=== PATIENT | female | born 1965 | race Hispanic/Latino ===

== ENCOUNTER 2017-07-25 11:28 | Inpatient (IN) | payer OTHER ==
[~2017-07-25] VITALS: Ht 165.1 cm; Wt 86.2 kg
[2017-07-25 12:01] LABS: BASOPHILS % 0.3 % (0.0-1.0); HEMATOCRIT 39.2 % (34.2-44.1); HEMOGLOBIN 13.2 g/dL (12.0-16.0); LYMPHOCYTES # (AUTO) 1.3 (1.0-3.2); LYMPHOCYTES % 18.7 % (18.0-39.1); MEAN CORPUSCULAR HEMOGLOBIN 28.6 pg (28-32); MEAN CORPUSCULAR HGB CONC 33.7 g/dL (31-35); MONOCYTES # (AUTO) 0.2 (0.2-0.8); MONOCYTES % 2.7 % (4.4-11.3); NEUTROPHILS # (AUTO) 5.2 (2.1-6.9); NEUTROPHILS % 77.6 % (38.7-80.0); PLATELET COUNT 125 x10e3/uL (140-360); RED BLOOD COUNT 4.61 x10e6/uL (3.6-5.1); RED CELL DISTRIBUTION WIDTH 14.2 % (11.7-14.4)
[2017-07-25 12:11] LABS: BILIRUBIN,URINE 1+ (NEGATIVE); CLARITY,URINE SL CLOUDY (CLEAR); COLOR,URINE YELLOW (YELLOW); KETONES,URINE NEGATIVE (NEGATIVE); LEUKOCYTE ESTERASE ,URINE NEGATIVE (NEGATIVE); NITRITE,URINE NEGATIVE (NEGATIVE); PROTEIN,URINE DIPSTICK 2+ (NEGATIVE); URINE UROBILINOGEN 0.2 mg/dL (0.2 - 1)
[2017-07-25 12:16] LABS: ALANINE AMINOTRANSFERASE 748 IU/L (0-55); ALBUMIN 3.4 g/dL (3.5-5.0); ALBUMIN/GLOBULIN RATIO 0.9 (0.8-2.0); ALKALINE PHOSPHATASE 267 IU/L (40-150); ANION GAP 16.9 mmol/L (8-16); BLOOD UREA NITROGEN 8 mg/dL (7-26); BUN/CREATININE RATIO 10 (6-25); CALCIUM 9.2 mg/dL (8.4-10.2); CARBON DIOXIDE 23 mmol/L (22-29); CHLORIDE 100 mmol/L (98-107); CREATININE, SERUM 0.79 mg/dL (0.57-1.11); EST GLOMERULAR FILTRATION RATE > 60 ML/MIN (60-); GLUCOSE 157 mg/dL (74-118); POTASSIUM 3.9 mmol/L (3.5-5.1); SODIUM 136 mmol/L (136-145)
[2017-07-25 12:17] LABS: RBC,URINE 0-5 /HPF (0-5); WBC,URINE (MAN) 0-5 /HPF (0-5)
[2017-07-25 12:18] LABS: EPITHELIAL CELLS,URINE FEW /LPF
[2017-07-25 12:47] LABS: BAND NEUTROPHILS % (MANUAL) 9 %; LYMPHOCYTES % (MANUAL) 20 % (19-48); MONOCYTES % (MANUAL) 6 % (3.4-9.0); NEUTROPHILS % (MANUAL) 63 % (40-74)
[2017-07-25] MEDS ORDERED: ACETAMINOPHEN 1000 MG/100 ML IV STA (12:47)
[2017-07-25 12:48] LABS: ANISOCYTOSIS SLIGHT; RBC MORPHOLOGY COMMENT NORMAL
[2017-07-25 12:49] LABS: PLATELET ESTIMATE SLIGHTLY DECREASED; PLATELET MORPHOLOGY COMMENT NORMAL
--- NOTE | 2017-07-25 13:42 | Diagnostic Imaging Report ---
PROCEDURE: Frontal and lateral views of the chest. COMPARISON: 10/27/16 INDICATIONS: FEVER, CHILLS, BODY ACHES FINDINGS: Lines/tubes: None. Lungs and pleura: The lungs are well inflated. Obscuration of the left costophrenic angle. Heart and mediastinum: The heart and the mediastinum are normal. Bones: No acute bony abnormality. IMPRESSION: Obscuration of the left costophrenic angle, representing a small effusion and/or pneumonia. Dictated by: Naga Diaz M.D. on 07/25/2017 at 13:44 Electronically approved by: Naga Diaz M.D. on 07/25/2017 at 13:44
[2017-07-25] MEDS ORDERED: SODIUM CHLORIDE 0.9% 1000ML 1,000 ML IV SCH (14:45)
--- NOTE | 2017-07-25 15:35 | Diagnostic Imaging Report ---
EXAM: CT Abdomen and Pelvis WITH contrast INDICATION: \S\FUO ELEVATED LFTS \[id number] \S\1456 \S\N COMPARISON: None. TECHNIQUE: Abdomen and pelvis were scanned utilizing a multidetector helical scanner from the lung base to the pubic symphysis after administration of IV contrast. Coronal and sagittal reformations were obtained. Routine protocol was performed. Scan was performed when during portal venous phase. IV CONTRAST: 100 mL of Isovue-370 ORAL CONTRAST: Water COMPLICATIONS: None RADIATION DOSE: Total DLP: 789.92 mGy*cm Estimated effective dose: (DLP x 0.015 x size factor) mSv CTDIvol has been reviewed. It is below the limits set by the Radiation Protocol Committee (RPC). FINDINGS: LINES and TUBES: None. LOWER THORAX: Bibasilar dependent atelectasis as well as right basilar linear atelectasis/scarring. HEPATOBILIARY: No focal hepatic lesions. No biliary ductal dilation. GALLBLADDER: No radio-opaque stones or sludge. No wall thickening. SPLEEN: No splenomegaly. PANCREAS: No focal masses or ductal dilatation. ADRENALS: No adrenal nodules KIDNEYS/URETERS: Kidneys enhance symmetrically. No hydronephrosis. No renal mass. Left superior pole subcentimeter hypodensity is too small to characterize. No stones. GI TRACT: No abnormal distention, wall thickening, or evidence of bowel obstruction. Appendix is normal. PELVIC ORGANS/BLADDER: Unremarkable. LYMPH NODES: No lymphadenopathy. VESSELS: Unremarkable. PERITONEUM / RETROPERITONEUM: No free air or fluid. BONES: Straightening of the lumbar spine lordosis. Otherwise, unremarkable. SOFT TISSUES: Unremarkable. IMPRESSION: 1. No acute inflammatory process in the abdomen/pelvis. Signed by: Dr. Naga Diaz MD on 07/25/2017 3:31 PM
[2017-07-25 17:36] LABS: HIV 1&2 AB SCREEN NON-REACTIVE (NONREACTIVE)
[2017-07-25] MEDS ORDERED: ONDANSETRON HCL INJ 2 MG/ML VIAL IV PRN (19:30)
[2017-07-25] MEDS ORDERED: IBUPROFEN 600 MG TAB PO PRN (19:30)
[2017-07-25] MEDS ORDERED: ONDANSETRON HCL 4 MG ORAL DISINTEGRATING TAB SL PRN (19:45)
[2017-07-25] MEDS: IBUPROFEN 400 MG TAB PO PRN (20:44)
[2017-07-26] VITALS (56 sets, daily range): BP systolic 71–165; BP diastolic 36–88
[2017-07-26] MEDS: SODIUM CHLORIDE 0.9% 1000ML 1,000 ML IV SCH ×4 (00:28→19:26)
[2017-07-26] MEDS ORDERED: IBUPROFEN 400 MG TAB ONE (04:13)
[2017-07-26] MEDS: IBUPROFEN 400 MG TAB PO PRN ×3 (04:17→21:44)
--- NOTE | 2017-07-26 05:37 | History and Physical ---
CLINICAL HISTORY: This is a 52-year-old woman seen in the emergency room at [facility] because of hypotension, fever of 9 days duration up to 103 degrees. This patient reportedly started having fever 9 days ago up to 103 degrees Fahrenheit. Father apparently had active tuberculosis, and the patient was given isoniazid approximately 7 months ago. She stopped taking this medication when she started having fever after having seen Dr. Morrison in the office a week ago and also today. Three days ago, the patient apparently has seen Dr. Tabby Durán, (sp?) who is reportedly an infectious disease managed services consultant. The patient was prescribed cefuroxime and has been taking this antibiotic for the past week. PAST MEDICAL HISTORY: Remarkable for hand surgery and tubal ligation. PERSONAL AND SOCIAL HISTORY: She denies smoking, but drinks approximately 5 drinks per week. She denies any drug abuse. MEDICATIONS: Included isoniazid and cefuroxime as well as vitamin. She is unemployed. FAMILY HISTORY: Father had hypertension, tuberculosis. Mother had no outstanding medical problem, but was also treated with isoniazid. Brother and sister are healthy. REVIEW OF SYSTEMS: Noncontributory. PHYSICAL EXAMINATION: VITAL SIGNS: Remarkable for blood pressure initially in the range of 80s. CARDIAC: Jugular veins were not distended. S1 and S2 were regular. There were no appreciable murmurs. LUNGS: Clear. ABDOMEN: Soft. Bowel sounds were present. EXTREMITIES: Showed no cyanosis, clubbing, edema. IMPRESSION: 1. Persistent fever of 9 days duration up to 103 degrees Fahrenheit, and associated with arthralgia, elevated liver functions. Consider hepatitis. Consider connective tissue disease as well as fever of unknown origin. 2. Hypotension, possibly due to sepsis with elevated lactate level. 3. History of tuberculosis exposure, treated with isoniazid for 7 months. RECOMMENDATION: Workup for fever of origin. Infectious disease consultation. Job#: [id number] cc:AGUSTIN MORRISON MD
[2017-07-26 07:34] LABS: BASOPHILS % 0.2 % (0.0-1.0); HEMATOCRIT 34.1 % (34.2-44.1); HEMOGLOBIN 11.6 g/dL (12.0-16.0); LYMPHOCYTES # (AUTO) 1.8 (1.0-3.2); LYMPHOCYTES % 20.8 % (18.0-39.1); MEAN CORPUSCULAR HEMOGLOBIN 28.9 pg (28-32); MONOCYTES # (AUTO) 0.4 (0.2-0.8); MONOCYTES % 4.1 % (4.4-11.3); NEUTROPHILS # (AUTO) 6.5 (2.1-6.9); NEUTROPHILS % 73.8 % (38.7-80.0); PLATELET COUNT 122 x10e3/uL (140-360); RED BLOOD COUNT 4.01 x10e6/uL (3.6-5.1); RED CELL DISTRIBUTION WIDTH 14.4 % (11.7-14.4)
[2017-07-26 08:07] LABS: ANION GAP 13.6 mmol/L (8-16); BLOOD UREA NITROGEN 6 mg/dL (7-26); BUN/CREATININE RATIO 9 (6-25); CALCIUM 8.5 mg/dL (8.4-10.2); CARBON DIOXIDE 21 mmol/L (22-29); CHLORIDE 106 mmol/L (98-107); CREATININE, SERUM 0.65 mg/dL (0.57-1.11); EST GLOMERULAR FILTRATION RATE > 60 ML/MIN (60-); GLUCOSE 129 mg/dL (74-118); POTASSIUM 3.6 mmol/L (3.5-5.1); SODIUM 137 mmol/L (136-145)
[2017-07-26] MEDS: PIPER-TAZ 3.375 GM 100 ML IV SCH ×3 (08:30→21:00)
--- NOTE | 2017-07-26 10:30 | Cardiology Report ---
DATE OF STUDY: ECHOCARDIOGRAM M-MODE: Normal chamber and wall dimensions. Normal contractility. Normal mitral and aortic valves. Small posterior pericardial effusion. SECTOR SCAN: Normal chamber and wall dimensions. Normal contractility. Normal mitral, aortic, and tricuspid valves. Small posterior pericardial effusion measuring 0.3 cm. CARDIAC DOPPLER STUDY WITH COLOR: Trace mitral regurgitation. 1+ tricuspid and pulmonic regurgitation. Pulmonary artery systolic pressure estimated at 33 mmHg. CONCLUSIONS: 1. Left ventricular ejection fraction is approximately 50%. 2. Small posterior pericardial effusion less than 0.3 cm. 3. Trace mitral regurgitation. 4. Mild tricuspid and pulmonic regurgitation. Job#: [id number] cc:AGUSTIN ARMANDO MD
[2017-07-26 10:50] LABS: BAND NEUTROPHILS % (MANUAL) 9 %; LYMPHOCYTES % (MANUAL) 20 % (19-48); METAMYELOCYTES % (MANUAL) 2 % (0-0); MONOCYTES % (MANUAL) 3 % (3.4-9.0); NEUTROPHILS % (MANUAL) 60 % (40-74)
[2017-07-26 10:51] LABS: ANISOCYTOSIS SLIGHT; HYPOCHROMASIA SLIGHT; PLATELET ESTIMATE SLIGHTLY DECREASED; PLATELET MORPHOLOGY COMMENT FEW LARGE; RBC MORPHOLOGY COMMENT NORMAL
[2017-07-26] MEDS ORDERED: SODIUM CHLORIDE 0.9% 500ML 500 ML IV ONE (11:00)
[2017-07-26] MEDS ORDERED: SODIUM CHLORIDE 0.9% 1000ML 1,000 ML ONE ×2 (12:12→15:13)
[2017-07-26] MEDS ORDERED: ONDANSETRON HCL 4 MG ORAL DISINTEGRATING TAB PO PRN (12:45)
[2017-07-26] MEDS ORDERED: ISONIAZID300 MG PO (13:35)
[2017-07-26] MEDS ORDERED: CEFUROXIME500 MG PO (13:35)
[2017-07-26] MEDS ORDERED: ACETAMINOPHEN325 M1 PO (13:35)
--- NOTE | 2017-07-26 18:41 | Diagnostic Imaging Report ---
EXAMINATION: Head CT HISTORY: Severe headache, fever of unknown origin COMPARISON: None. TECHNIQUE: Multidetector axial images were obtained without contrast from the foramen magnum to the vertex . The images were reconstructed using brain and bone algorithms. Thin section brain images were reformatted into coronal and sagittal planes. Motion/streaking artifact limits the evaluation of the skull base and posterior cranial fossa. FINDINGS: Parenchyma: 1. A few scattered bilateral frontal juxtacortical white matter hypodensities, most likely nonspecific chronic microvascular ischemic changes. 2. No mass or hemorrhage. No CT evidence of acute territorial vascular insult. Extra-axial spaces:No abnormal density. No extra-axial fluid collections Brain volume: Normal for age. Ventricles: No hydrocephalus or displacement. Arteries: No density suggestive of thrombus. Dural sinuses: No abnormal density. Extra-axial spaces: No abnormal density. Foramen magnum: No mass, Chiari malformation, or basilar invagination. Sella: No obvious mass. Paranasal/mastoid sinuses: Imaged portions unremarkable. Skull/Scalp: No lytic or blastic lesions. No fractures. IMPRESSION: Mild chronic microvascular ischemic changes. Otherwise acute intracranial abnormalities in this unenhanced study. Signed by: Dr. Pat Hackett M.D. on 07/26/2017 6:38 PM
[2017-07-26] MEDS ORDERED: IOPAMIDOL 370 MG/ML 200 ML INFUS..BTL INJ ONE (20:35)
[2017-07-26] MEDS ORDERED: SODIUM CHLORIDE 0.9% 50ML 50 ML ONE (20:35)
[2017-07-27] VITALS (79 sets, daily range): BP systolic 76–125; BP diastolic 23–85
[2017-07-27] MEDS ORDERED: SODIUM CHLORIDE 0.9% 1000ML 1,000 ML ONE ×3 (00:27→20:25)
[2017-07-27] MEDS: SODIUM CHLORIDE 0.9% 1000ML 1,000 ML IV SCH ×4 (00:29→20:29)
[2017-07-27] MEDS: PIPER-TAZ 3.375 GM 100 ML IV SCH ×4 (02:00→20:30)
--- NOTE | 2017-07-27 09:44 | Consultation ---
DATE OF CONSULTATION: July 26, 2017 INFECTIOUS DISEASE CONSULTATION REASON FOR CONSULTATION: Fever of unknown origin. Thank you, Dr. Fink, for asking me to see this patient. HISTORY OF PRESENT ILLNESS: The patient is a 52-year-old woman referred for fever of unknown origin. She presented to the emergency department with fever, headache, joint pain, generalized weakness, and cough of 9 days duration. Also, the patient reports decreased appetite. She had 4 episodes of diarrhea several days earlier, but it resolved spontaneously. She denies cough, shortness of breath, nausea, dysuria and increased frequency of urination. The patient denies sick contact and animals/tick exposure. Also, she denies mosquito bite. She travels to [place] intermittently with the last travel being about 2 months ago. The patient was taking INH for latent TB infection for several months, which was discontinued several days ago when she became ill (on the instruction of the lead pharmacy technician). The patient was evaluated outpatient and treated with Extra Strength Tylenol 2 pills every 4 hours without improvement. In the emergency department, she was noted to have temperature of 101.8 degrees Fahrenheit, pulse 98, respiratory rate 20, blood pressure 114/48 and oxygen saturation 96% on room air. Initial laboratory studies showed white blood cell count of 6680 with 77.6% neutrophils, AST 929, ALT 748, alkaline phosphatase 267, total bilirubin 1. CT scan of the abdomen and pelvis showed no acute abnormalities. PAST MEDICAL HISTORY: Latent TB infection. PAST SURGICAL HISTORY: Hand surgery following work-related accident, open reduction and internal fixation of left wrist and tubal ligation. ALLERGIES: NO KNOWN DRUG ALLERGIES. MEDICATIONS: See MAR. Current antibiotic is Zosyn 3.375 grams IV piggyback q.6 h. FAMILY HISTORY: The father with TB and hypertension. SOCIAL HISTORY: The patient drinks about 5 beers at a sitting intermittently on weekends, even while she was taking the INH. She denies tobacco and recreational drug use. REVIEW OF SYSTEMS: As per history of present illness. She denies sore throat. PHYSICAL EXAMINATION GENERAL: No acute distress. VITAL SIGNS: T max 103, TC 98.6, pulse 65, respiratory rate 19, blood pressure 102/50, weight 190 pounds. HEENT: Normocephalic. There is no icterus or injection of the conjunctivae. There is no ear or nasal discharge. Moist oral mucosa. There is no pharyngeal erythema or exudate. NECK: Supple. No lymphadenopathy or meningismus. LUNGS: Clear to auscultation bilaterally. HEART: Normal S1 and S2, regular. ABDOMEN: Soft and nontender. EXTREMITIES: There is no edema, clubbing or cyanosis. SKIN: There is no acute erythema or jaundice. CASE FITTER: Awake, alert and oriented to person, place and time. Nonfocal. LABORATORY DATA: WBC 8760, hemoglobin 11.6, platelets 122,000, neutrophils 73.8, lymphs 20.8, monos 4.1, eosinophils 0, basophils 0.2. ESR 30. BUN 6, creatinine 0.65. Urinalysis negative for pyuria. Hepatitis serology is pending. HIV screen is negative. Blood culture showed no growth and urine culture also no growth. IMPRESSION 1. Fever. 2. 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 It is likely that Tylenol made the situation worse. PLAN: 1. Await blood culture and hepatitis serology results. 2. Taper off dopamine as tolerated. Job#: [id number] [facility]
[2017-07-27 10:23] LABS: % IRON SATURATION 16 % (15-50); IRON 33 ug/dL (50-170); TOTAL IRON BINDING CAPACITY 209 ug/dL (261-478); TRANSFERRIN 149 mg/dL (180-382)
[2017-07-27] MEDS ORDERED: POTASSIUM CHLORIDE 20 MEQ TAB CR PO NR (10:30)
[2017-07-27] MEDS ORDERED: SODIUM BICARBONATE 650 MG TAB PO NR (10:30)
[2017-07-27 10:57] LABS: ALANINE AMINOTRANSFERASE 791 IU/L (0-55); ALBUMIN 2.6 g/dL (3.5-5.0); ALBUMIN/GLOBULIN RATIO 0.9 (0.8-2.0); ALKALINE PHOSPHATASE 196 IU/L (40-150); ANION GAP 12.1 mmol/L (8-16); BLOOD UREA NITROGEN 7 mg/dL (7-26); BUN/CREATININE RATIO 10 (6-25); CALCIUM 8.1 mg/dL (8.4-10.2); CARBON DIOXIDE 23 mmol/L (22-29); CHLORIDE 108 mmol/L (98-107); CREATININE, SERUM 0.73 mg/dL (0.57-1.11); EST GLOMERULAR FILTRATION RATE > 60 ML/MIN (60-); GLUCOSE 107 mg/dL (74-118); POTASSIUM 4.1 mmol/L (3.5-5.1); SODIUM 139 mmol/L (136-145)
[2017-07-27] MEDS: IBUPROFEN 400 MG TAB PO PRN (11:20)
[2017-07-27] MEDS: DOCUSATE SODIUM 100 MG CAP PO SCH (11:54)
[2017-07-27] MEDS ORDERED: PROMETHAZINE 12.5MG/ NACL 0.9% 12.5 MG/50 ML BAG IV NR (14:00)
[2017-07-27] MEDS ORDERED: METHYLPREDNISOLONE SOD SUCC 125 MG/2ML VIAL IV NR (14:00)
[2017-07-27] MEDS ORDERED: VALPROATE SOD INJ 500 MG in SODIUM CHLORIDE 0.9% 100 ML 100 ML IV NR (14:30)
--- NOTE | 2017-07-27 17:08 | Consultation ---
DATE OF CONSULTATION: July 27, 2017 NEUROLOGY CONSULTATION HISTORY OF PRESENT ILLNESS: Ms. Julien is a 52-year-old right hand dominant woman with past medical history significant for hyperlipidemia admitted to [facility] on July 26, 2017 with fever of unknown origin and hypotension. During her hospitalization, the patient has endorsed frequent headaches over the past 2 months. Therefore, a neurology consultation was requested for further evaluation and treatment of headaches. The patient describes her headaches as follows: The pain may be generalized, unilateral over either the right or left side of the head, or over the occiput and neck. The pain is described as "pulsing" and is rated a 10 out of 10. Associated with the headache are mild photophobia and phonophobia. Once, the patient noted flashing lights affecting both eyes with the headache. However, the patient believes the flashing lights were due to elevated blood pressure. Ms. Julien does not endorse nausea, vomiting, or dizziness associated with her headaches. She does not report an aura. As stated above, the headaches began approximately 2 months ago and have occurred nearly every day. The patient is unaware of any triggers for her headaches. Ms. Julien recently saw her primary care physician, who recommended she take Tylenol 1000 mg by mouth every 4 hours for her headaches. Unfortunately, the Tylenol has not improved the headaches. Ms. Jluien reports nothing improves the headaches. Ms. Julien does not endorse a previous history of migraine or other headaches. Her mother had migraines as a young woman. One of Ms. Julien's sisters has migraines as well. REVIEW OF SYSTEMS: Fever, headache, photophobia, phonophobia. The remainder of a 12-point review of systems is negative. PAST MEDICAL HISTORY: Hyperlipidemia. Over the past several months, the patient has taken cefuroxime and isoniazid for prophylaxis against tuberculosis (the patient's father has an active tuberculosis infection). PAST SURGICAL HISTORY: Bilateral tubal ligation, hand surgery twice. PAST HOSPITALIZATIONS: Surgeries and procedures as listed, childbirth times 4. FAMILY HISTORY: The patient's paternal and maternal grandparents are . Their medical histories are unknown. The patient's father and mother are alive. As documented above, the patient's father is being treated for tuberculosis. Otherwise, Ms. Julien's father and mother are healthy. Ms. Julien has a sister with diabetes mellitus. Otherwise, her siblings are alive and healthy. Ms. Julien has 4 children, all of whom are alive and healthy. SOCIAL HISTORY: The patient is . She works as a hand packer in a factory. Ms. Julien does not report current or prior tobacco or recreational drug use. She does report occasional alcohol use. HOME MEDICATIONS: Acetaminophen 500 mg by mouth every 4 hours as needed for headache, cefuroxime 500 mg by mouth twice daily, isoniazid 300 mg by mouth daily. ALLERGIES: NO KNOWN DRUG ALLERGIES. NO KNOWN FOOD ALLERGIES. NO KNOWN ALLERGIES TO LATEX. NO KNOWN ALLERGIES TO IODINE OR OTHER CONTRAST MATERIALS. PHYSICAL EXAMINATION: VITAL SIGNS: Height 65 inches, weight 190 pounds, BMI 31.6 kg per meter squared, blood pressure 99/56 mmHg, pulse 72 beats per minute, respiratory rate 18 breaths per minute, oxygen saturation 100% on room air. GENERAL: The patient is awake and alert, does not appear distressed. Mildly obese. HEENT: Normocephalic, atraumatic. Pupils are equal, round, and reactive to light. Moist mucous membranes. NECK: Supple. No appreciable thyromegaly. No appreciable carotid bruits. RESPIRATORY: Clear to auscultation bilaterally. No wheezes, rhonchi, or rales. EXTREMITIES: The skin is warm and dry. No clubbing, cyanosis, or edema. The posterior tibial and dorsalis pedis pulses are 2+ and symmetric. SKIN: No rashes or lesions. NEUROLOGIC Memory/Attention: The patient is awake and alert, oriented to person, place, time, and situation. Cranial Nerves: Cranial nerve 1--Not tested. Cranial nerve 2, 3, 4, and 6--Pupils are equal and round, react briskly to light (from 4 mm to 2 mm), extraocular movements intact, no nystagmus. Cranial nerve 5--Sensation to light touch and pinprick is intact in the bilateral V1 through V3 distributions. Strength of the temporalis and masseter muscles is within normal limits. Cranial nerve 7--The face is symmetric, as are all facial movements. Strength is within normal limits. Cranial nerve 8--Hearing is intact to finger rub bilaterally. Cranial nerve 9, 10--The soft palate elevates equally and symmetrically. Cranial nerve 11-Normal strength of the bilateral sternocleidomastoid and trapezius muscles. Cranial nerve 12--The tongue protrudes midline and moves symmetrically from side to side. Strength: Bulk is normal and strength is 5/5 in the bilateral deltoids, biceps, triceps, wrist flexors and extensors, finger flexors and extensors, intrinsic hand muscles, hip flexors, knee flexors and extensors, ankle dorsiflexion and plantar flexion, and intrinsic foot muscles. Tone is normal. DTRs: Deep tendon reflexes are 2+ and symmetric at the triceps, biceps, brachioradialis, patellas, and Achilles. Plantar responses are flexor bilaterally. Sensation: Sensation is intact to light touch and pinprick in both arms and both legs. Cerebellar: [id number] and heel-bills movements are intact without dysmetria or other impairment. Gait: Deferred. Speech: Spontaneous speech is normal without appreciable dysarthria or aphasia. Repetition is intact. Involuntary Movements: None. Pronator Drift: None. LABORATORY DATA: Sodium 139, potassium 4.1, chloride 108, carbon dioxide 23, anion gap 12.1, BUN 7, creatinine 0.73, estimated GFR greater than 60. BUN to creatinine ratio 10. Glucose 107. Calcium 8.1. Total bilirubin 0.8, AST 553, ALT 791, alkaline phosphatase 196, total protein 5.6, albumin 2.6, globulin 3.0. Albumin to globulin ratio 0.9. Iron 33, TIBC 209, percent saturation 16, transferrin 149. From July 26, 2017, the white blood cell count is 8.76 with 73.8% neutrophils, 20.8% lymphocytes, 4.1% monocytes, 0.0% eosinophils, and 0.2% basophils. The hemoglobin and hematocrit are 11.6 and 34.1, respectively. The platelet count is 122. Erythrocyte sedimentation rate 30. From July 25, 2017, urinalysis reveals 2+ protein, 3+ blood, 1+ bilirubin. Stool occult blood is negative. West Nile virus IgG antibody pending. West Nile virus IgM antibody pending. Hepatitis A IgM antibody negative. Hepatitis B surface antigen negative. Hepatitis B core IgM antibody negative. Hepatitis C antibody 0.1. HIV-1 and 2 antibody nonreactive. HIV p24 antigen nonreactive. DIAGNOSTIC STUDIES: Chest x-ray of July 25, 2017: Obscuration of the left costophrenic angle, representing a small effusion and/or pneumonia. CT abdomen/pelvis July 25, 2017: No acute inflammatory process in the abdomen/pelvis. CT of the brain without contrast July 26, 2017: On my review, there is no evidence of recent large territorial ischemia, hemorrhage, mass, or mass effect. There are findings compatible with mild chronic small-vessel ischemic disease. Cerebral volumes are within normal limits for age. ASSESSMENT AND PLAN: Ms. Julien is a 52-year-old right hand dominant woman without significant past medical history admitted to [facility] with fever of unknown origin and hypotension. During this hospitalization, the patient has endorsed frequent headaches over the past 2 months. Ms. Julien's neurological examination is nonfocal. Her laboratory data and other diagnostic studies have been reviewed and are documented above. 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 A CT of the brain without contrast has been performed and did not reveal secondary causes for headache. Therefore, it is most likely Ms. Julien's frequent headaches over the past 2 months represent a primary headache disorder. RECOMMENDATIONS: 1. Promethazine 12.5 mg IV once. 2. Methylprednisolone 125 mg IV once. 3. Valproate 500 mg IV once. 4. These medications, when given in combination, are an effective abortive treatment for status migrainosus. This combination of medications may be given again in 6 hours if needed. 5. Defer treatment of the remaining medical comorbidities to the primary and other services. Thank you for this consultation. I will continue to follow this patient while she remains in the hospital. Time spent: 50 minutes. Job#: [id number] [facility]OHANA
[2017-07-27] MEDS ORDERED: METHYLPREDNISOLONE SOD SUCC 125 MG/2ML VIAL IV PRN (20:00)
[2017-07-27] MEDS ORDERED: VALPROATE SOD INJ 500 MG in SODIUM CHLORIDE 0.9% 100 ML IV PRN (20:00)
[2017-07-28] VITALS (14 sets, daily range): BP systolic 93–134; BP diastolic 50–83
[2017-07-28] MEDS: PIPER-TAZ 3.375 GM 100 ML IV SCH ×4 (02:05→20:12)
[2017-07-28] MEDS ORDERED: SODIUM CHLORIDE 0.9% 1000ML 1,000 ML ONE (04:47)
[2017-07-28] MEDS: SODIUM CHLORIDE 0.9% 1000ML 1,000 ML IV SCH ×3 (04:50→21:50)
[2017-07-28] MEDS: DOCUSATE SODIUM 100 MG CAP PO SCH (08:14)
[2017-07-28 10:24] LABS: FREE THYROXINE INDEX 1.8748 (1.4-3.8); THYROID STIMULATING HORMONE 0.555 uIU/mL (0.350-4.940)
[2017-07-29] VITALS: BP 137/67
[2017-07-29] MEDS: PIPER-TAZ 3.375 GM 100 ML IV SCH ×3 (02:43→14:00)
[2017-07-29 04:00] VITALS: BP 125/69
[2017-07-29 07:06] LABS: ALBUMIN 2.5 g/dL (3.5-5.0); BILIRUBIN,DIRECT 0.2 mg/dL (0.0-0.5)
[2017-07-29 08:29] VITALS: BP 126/70
[2017-07-29] MEDS: DOCUSATE SODIUM 100 MG CAP PO SCH ×2 (09:00→15:24)
[2017-07-29 12:00] VITALS: BP 117/58
--- NOTE | 2017-07-29 15:22 | Discharge Summary ---
CLINICAL HISTORY: This 52-year-old white woman was admitted via the emergency room because of persistent high fevers failing outpatient management. Please refer to my previous dictation concerning details of current illness, past medical history, personal and social history, family history, review of systems, physical examination and initial laboratory studies. HOSPITAL COURSE: The patient had a normal white count. Viral screen including HIV and hepatitis were negative. West Nile panel is still pending. JARRELL was negative. ESR was elevated at 30. She was slightly anemic. Serum iron level saturation was still in the normal range at 16%, although iron and TIBC were both low. Albumin was low at 2.5. Liver functions were elevated with alkaline phosphatase up to 267, AST of 929, ALT of 791. Bilirubin was normal. Thyroid function studies were negative. The patient's liver functions gradually improved with time, with AST down to 234, ALT down to 566, alkaline phosphatase down to 132. She had headache. CT scan of the head was negative. Neurology consultation was obtained with Dr. uDenas, and the patient was treated symptomatically with improvement. Infectious disease consultation was obtained with Dr. Jacques Vargas. CT scan of the abdomen showed no acute pathology. Chest x-ray was negative. Dr. Vargas felt the patient probably has drug fever related to isoniazid. We also stopped her Tylenol. She defervesced and was anxious for discharge. Will follow further on outpatient basis with primary care physician. DISCHARGE DIAGNOSES 1. Possible drug fever related to isoniazid. 2. Headaches resolved with symptomatic management, with CT scan of the head negative. 3. Drug hepatitis. 4. Hypotension, possibly due to volume depletion at the time of presentation, with blood pressure at the time of discharge in the range of 125 to 135 without pressors. She was treated briefly with pressors at the time of admission. 5. History of tuberculosis exposure treated with 7 months of isoniazid. 6. Small posterior pericardial effusion measuring 0.3 cm, possibly requiring further followup. Her ejection fraction is 50%. ROSIE NGUYỄN MD Job#: [id number] cc:MD JACQUES GARNICA MD
== END 2017-07-29 18:23 | disposition home or self-care (01) | DRG 872 ==
LOC: ER 11:28 → MED/SURG3 22:42 → UNDOADMIN 22:42 → ERHOLD 07-26 → EDBEDREQ 07-26 02:35 → EDBEDREQSVC 07-26 02:35 → ERHOLD 07-26 05:58 → ICU 07-26 11:50 → MED/SURG 07-28 16:31
PROVIDERS: ADMIT Internal Medicine Cardiovascular Disease; ATTEND Internal Medicine Cardiovascular Disease
DX: A41.9 Sepsis, unspecified organism (principal); I31.3 Pericardial effusion (noninflammatory); K71.2 Toxic liver disease with acute hepatitis; R50.2 Drug induced fever; T37.1X5A Adverse effect of antimycobacterial drugs, initial encounter; K75.89 Other specified inflammatory liver diseases; Z20.1 Contact with and (suspected) exposure to tuberculosis; E78.5 Hyperlipidemia, unspecified; R31.29 Other microscopic hematuria; R76.11 Nonspecific reaction to tuberculin skin test without active tuberculosis; G43.001 Migraine without aura, not intractable, with status migrainosus; G44.89 Other headache syndrome
CPT/HCPCS: 36415; 70450; 71046; 74177; 80048; 80053; 80076; 81001; 82270; 83540; 83605; 84436; 84443; 84466; 84479; 85025; 85651; 86039; 86789; 87040; 87086; 87390; 93005; 93306; 99285; G0433; G0435; J2543; J2550; J2930; J7030; J7040; J7050; Q9967